=== PATIENT | male | born 1985 | race Caucasian/White ===

== ENCOUNTER 2018-10-07 13:19 | Day surgery (SDC) | payer OTHER ==
[~2018-10-07] VITALS: Ht 182.9 cm; Wt 89.1 kg
[2018-10-07] VITALS (8 sets, daily range): BP systolic 101–153; BP diastolic 54–83; PULSE 84–90; Ht 182.9 cm; Wt 89.1 kg
[~2018-10-07 13:19] MED LIST: NO MEDS
[2018-10-07] MEDS ORDERED: PROPOFOL 20 ML ONE (15:34)
[2018-10-07] MEDS ORDERED: MIDAZOLAM 1 MG/ML 2 ML INJ ONE (15:34)
--- NOTE | 2018-10-07 15:38 | PREAC ---
Date/Time of Note Date/Time of Note DATE: 10/07/18 TIME: 15:36 Anesthesia Eval and Record Evaluation Time Pre-Procedure Interview DATE: 10/07/18 TIME: 15:36 Age 32 Sex male NPO: 8 hrs Preoperative diagnosis Chronic Diarrhea Planned procedure Flexible Sigmoidoscopy Past Medical History Past Medical History: Includes Psych: Anxiety Surgery & Anesthesia Issues No known issue Meds Anticoagulation: No Beta Smooth within 24 hr: No Reason Beta Smooth not given: Pt. not on B-Smooth Reported Medications [No Meds] No Conflict Check 10/07/18 Meds reviewed: Yes Allergies Allergies Reviewed: Yes Labs/Studies Labs Reviewed: Reviewed by anesthesiologist test: N/A Studies: ECG (n/a), CXR (n/a) Pre-procedure Exam Airway: Adequate mouth opening, Adequate thyromental dist Mallampati: Mallampati II Teeth: Normal Lung: Normal Heart: Normal ASA Physical Status ASA physical status: 2 Emergency: None Planned Anesthetic General/MAC: MAC Planned Pain Management Parenteral pain med Pre-operative Attestations Prior to commencing anesthesia and surgery, the patient was re-evaluated, there was verification of: *The patient's identity *The results of appropriate recent lab work and preoperative vital signs *The above evaluation not changing prior to induction *Anesthetic plan, risk benefits, alternative and complications discussed with patient/family; questions answered; patient/family understands, accepts and wi shes to proceed. ZARA CABRAL MD Oct 07, 2018 15:38
[2018-10-07] MEDS ORDERED: PROPOFOL 60 ML ONE (16:08)
--- NOTE | 2018-10-07 16:17 | PAC ---
Date/Time of Note Date/Time of Note DATE: 10/07/18 TIME: 16:16 Post-Anesthesia Notes Post-Anesthesia Note Last documented vital signs Vital Signs Date Temp Pulse Resp B/P (MAP) Pulse Ox O2 O2 Flow FiO2 Time Delivery Rate 10/07/18 97.8 87 16 144/83 100 Room Air 16:15 (103) Activity: WNL Respiratory function: WNL Cardiovascular function: WNL Mental status: Baseline Pain reasonably controlled: Yes Hydration appropriate: Yes Nausea/Vomiting absent: Yes ZARA CABRAL MD Oct 07, 2018 16:17
== END 2018-10-07 16:16 | disposition home or self-care (01) ==
LOC: GIL 13:19
PROVIDERS: ATTEND Internal Medicine Gastroenterology
DX: K64.8 Other hemorrhoids (principal)
CPT/HCPCS: 45331; 88305; J2250; Z7610